=== PATIENT | male | born 2000 | race Caucasian/White ===

== ENCOUNTER 2020-02-29 05:43 | Outpatient (CLI) | payer OTHER, SELFPAY ==
--- NOTE | 2020-04-02 12:22 | WPDHOMESLEEP ---
Sleep Study - Home Unattended Date of Study: 02/29/20 Ordering Provider: Mark Buchanan MD Interpreting Physician: Arun Price MD Home Sleep Study Type: Apnea Link Air Height: 1.75 m Weight: 129.274 kg Body Mass Index: 42.0 [place]: 8 Reason for Sleep Study Poor quality sleep, snoring, difficulty falling asleep and staying asleep Sleep History Anastacio Davis Is a 19-year-old male who describes himself as a night owl. He snores. He has difficulty falling asleep due to anxiety. There is a family history of sleep apnea with his grandmother and grandfather using CPAP. He has used medication to help fall asleep and stay asleep. He was placed on an SSRI to help with anxiety. He constantly snores and is frequently loud enough that others complain about it. He constantly has trouble sleep with a cold. He does not gasp for breath at night or have breathing problems reported to him by others but he does frequently sweats excessively at night. He does not notice his heart pounding or beating irregularly at night. He occasionally falls asleep during the day but never involuntarily or while driving. He does not have loss of muscle tone with strong emotion. 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 He does not feel paralyzed when waking or falling asleep. He rarely has vivid dreamlike scenes upon awakening or falling asleep. He has never for a to go to sleep. He rarely has nightmares. He rarely remembers is doing dreams. He occasionally has racing thoughts. He frequently feels sad, depressed and anxious. Occasion has muscular tension. He rarely notices parts of his body jerking. He rarely kicks at night. He does not have crawling and aching feelings in the legs and really has leg pain at night. He does not have morning jaw pain. He does not grind his teeth during sleep. He occasionally has bothered by pain during the day but never is awakened by pain at night. He occasionally wakes up feeling stiff in the morning with sore achy muscles, rarely wakes up with pain in the neck and spine. He has headaches depression and difficulty making decisions. Normal bedtime is 2:00 a.m. taking 30 minutes to fall asleep typically waking 3 times at night for just a short while. When this happens he looks it is alarm clock. He wakes up at 9:30 a.m. in the morning. Weekend is about the same. Sometimes she stays up until midnight. He does not take naps. A short nap may be refreshing. He is drowsy in the morning for 2 hours or longer. HABITS: He never smoked. Caffeine 2 beverages a week. No alcohol or recreational drugs. [facility] Past Medical History Medical History (Updated 04/02/20 @ 12:43 by Arun Price MD) Anxiety Depression Headache, migraine, intractable has been hospitalized within the past Insomnia Seasonal allergies Surgical History Surgical History History of tonsillectomy and adenoidectomy Family History Family History Grandparent Obstructive sleep apnea a grandmother and grandfather both wear CPAP Social History Social History (Updated 04/02/20 @ 12:40 by Arun Price MD) Smoking status: Never smoker Alcohol intake: never Substance use: never Living arrangements: with family Occupation/Education: occupation Additional occupation/education comments: 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 This study was scored using CMS guidelines. the sleep duration was 7 hours 18 minutes. Sleep Architecture Not applicable for home sleep test. Respiratory Analysis he apnea-hypopnea index is 4.2. The respiratory disturbance index is elevated
[2020-04-02 12:54] VITALS: BMI 42.0
== END 2020-02-29 05:44 ==
LOC: ANHCSM 04-03 05:44
PROVIDERS: PCP Pediatrics; Visit Provider Family Medicine
DX: G47.10 Hypersomnia, unspecified (principal); R06.83 Snoring; E66.9 Obesity, unspecified; Z68.41 Body mass index [BMI] 40.0-44.9, adult
CPT/HCPCS: 95806

== ENCOUNTER 2020-10-14 09:26 | Outpatient (CLI) | payer OTHER, SELFPAY ==
--- NOTE | ~2020-10-14 | XR_ITS ---
EXAMINATION: XR knee LT 3V DATE: 10/14/2020 09:46 INDICATION: Left knee pain. TECHNIQUE: 3 views of left knee were obtained. COMPARISON: Left tibia and fibula radiographs 02/19/2014 FINDINGS: Bone alignment is normal. No fracture. Joint spaces are well maintained. There is no knee j oint effusion. IMPRESSION: 1. Normal left knee. Reviewed, dictated and finalized at location A. IMPRESSION: 1. Normal left knee.
== END 2020-10-14 09:27 | disposition home or self-care (01) ==
LOC: CHSIMG 09:28
PROVIDERS: PCP Family Medicine; Visit Provider Family Medicine
DX: M25.562 Pain in left knee (principal)
CPT/HCPCS: 73562

== ENCOUNTER 2021-01-23 15:35 | Outpatient (CLI) | payer OTHER, SELFPAY ==
[2021-01-23 16:22] LABS: SARS-CoV-2 Ag Negative (Negative)
== END 2021-01-23 15:36 | disposition home or self-care (01) ==
LOC: CHSLAB 15:38
PROVIDERS: PCP Family Medicine; Visit Provider Family Medicine
DX: J02.9 Acute pharyngitis, unspecified (principal); Z20.822 Contact with and (suspected) exposure to COVID-19
CPT/HCPCS: 87081; 87426; 87880; C9803

== ENCOUNTER 2021-02-04 19:47 | Emergency (ER) | payer OTHER, SELFPAY ==
[2021-02-04 20:09] VITALS: BP 141/78; PULSE 68; RESP 18; TEMP 36.4; O2SAT 100
--- NOTE | 2021-02-04 23:12 | ED.URI ---
HPI - URI/Sore Throat General Chief Complaint: Upper Respiratory Infection Stated Complaint: rsv/sinus symptoms Time Seen by Provider: 02/04/21 23:00 History of Present Illness HPI Narrative: Patient presents with cough congestion and sore throat. Patient ports he had a sore throat couple weeks ago saw his primary care doctor was started on antibiotics was improving however since yesterday symptoms appear to be returning and are now associated with a cough subjective fevers and sinus pressure. He reports his cousin tested positive for RSV and his family told him to come to the ER for evaluation. Patient denies any focal chest pain, shortness of breath, nausea, vomiting. Related Data Home Medications Medication Instructions Recorded Confirmed citalopram mg 02/04/21 Allergies Allergy/AdvReac Type Severity Reaction Status Date / Time divalproex sodium Allergy Intermediate Confusion Verified 02/04/21 22:18 DIPHENHYDRAMINE HCL AdvReac Unknown DISORIENTED Uncoded 02/04/21 22:18 PROCHLORPERAZINE EDISYLATE AdvReac Unknown DISORIENTED Uncoded 02/04/21 22:18 PROCHLORPERAZINE MALEATE AdvReac Unknown DISORIENTED Uncoded 02/04/21 22:18 Review of Systems Review of Systems: CONSTITUTIONAL: Denies fever, chills, or sweats. EYES: Denies visual changes, redness, or discharge. ENT: Reports congestion and sinus pressure CARDIOVASCULAR: Denies chest pain, palpitations, or edema. RESPIRATORY: Patient reports cough GASTROINTESTINAL: Denies abdominal pain, nausea, vomiting, or diarrhea. GENITOURINARY: Denies dysuria or hematuria. SKIN: Denies rash or itching. MUSCULOSKELETAL: Denies back pain, joint pain, or myalgia. NEUROLOGIC: Denies headache, numbness, dizziness, or weakness. PSYCHIATRIC: Denies anxiety or depression. 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 HEAD: Normocephalic, atraumatic. EYES: PERRLA and EOMI. ENT: Nares clear, no rhinorrhea or epistaxis. Mucous membranes moist. Mild erythema in the posterior pharynx mild tenderness to percussion on the frontal maxillary sinus NECK: Supple. No masses. No JVD CHEST: Clear to auscultation. No respiratory distress. No wheezes rales or rhonchi HEART: Regular rate and rhythm. No murmur heard. Normal peripheral pulses. ABDOMEN: Soft, nontender, nondistended, normal active bowel sounds. EXTREMITIES: Normal range of motion. No edema. SKIN: Warm, dry, no rash. NEURO: No focal deficits. Alert and oriented x3. PSYCH: Normal mood and affect. Course Vital Signs Vital signs: Vital Signs Temperature 36.4 C 02/04/21 20:09 Pulse Rate 68 02/04/21 20:09 Respiratory Rate 18 02/04/21 20:09 Blood Pressure 141/78 H 02/04/21 20:09 Pulse Oximetry 100 02/04/21 20:09 Temperature 36.4 C 02/04/21 20:09 Pulse Rate 68 02/04/21 20:09 Respiratory Rate 18 02/04/21 20:09 Blood Pressure 141/78 H 02/04/21 20:09 Pulse Oximetry 100 02/04/21 20:09 MDM - URI/Sore Throat MDM Narrative Medical decision making narrative: H&P as above, vs with mild hypertension, pt looks clinically well, exam reassuring, labs/img
== END 2021-02-04 23:35 | disposition home or self-care (01) ==
PROVIDERS: Emergency Provider Emergency Medicine; PCP Family Medicine
DX: J06.9 Acute upper respiratory infection, unspecified (principal); F41.9 Anxiety disorder, unspecified; F32.9 Major depressive disorder, single episode, unspecified; G47.00 Insomnia, unspecified; Z86.69 Personal history of other diseases of the nervous system and sense organs
CPT/HCPCS: 99281

== ENCOUNTER 2021-05-19 16:44 | Outpatient (CLI) | payer OTHER, SELFPAY ==
[2021-05-19 17:57] LABS: Influenza A QL RT-PCR Negative (Negative); Influenza B QL RT-PCR Negative (Negative); SARS-CoV-2 RNA PCR Negative (Negative)
== END 2021-05-19 16:45 | disposition home or self-care (01) ==
LOC: CHSLAB 16:48
PROVIDERS: PCP Family Medicine; Visit Provider Nurse Practitioner Family
DX: Z20.822 Contact with and (suspected) exposure to COVID-19 (principal); R50.9 Fever, unspecified; R52 Pain, unspecified
CPT/HCPCS: 87081; 87502; 87880; C9803; U0003; U0005

== ENCOUNTER 2021-09-11 12:21 | Outpatient (CLI) | payer BC, SELFPAY ==
--- NOTE | ~2021-09-11 | XR_ITS ---
EXAMINATION: XR abdomen obstructive series EXAM DATE: 09/11/2021 12:48 INDICATION: RUQ Pain x 3 days . TECHNIQUE: Frontal projection(s) of the abdomen for interpretation. There is no prior study for desi amaya. FINDINGS: There is expected amount of colonic stool and gas. No small bowel dilation, nonobstructiv e bowel gas pattern. There are no suspicious calcifications identified. There is no organomegaly suspected. The bones are unremarkable. There is no free intraperitoneal air. The lung bases are clear. IMPRESSION: Unremarkable abdomen x-ray. Reviewed, dictated and finalized at location B. IMPRESSION: Unremarkable abdomen x-ray.
--- NOTE | ~2021-09-11 | US_ITS ---
EXAMINATION: US right upper quadrant DATE: 09/11/2021 12:59 INDICATION: Right abdominal pain. TECHNIQUE: Multiple grayscale and Doppler ultrasound images of the abdomen were obtained. COMPARISON: Abdomen ultrasound 11/07/2009 FINDINGS: The visualized portions of the head and body of the pancreas are normal. There is diffuse h epatic steatosis. There is normal flow in main portal vein. The gallbladder is normal in size. No gal lstones or gallbladder wall thickening. There was no sonographic Sutherland sign. The common duct is norm al and measures 5 mm. IMPRESSION: 1. Diffuse hepatic steatosis. Reviewed, dictated and finalized at location A.
== END 2021-09-11 12:22 | disposition home or self-care (01) ==
LOC: CHSIMG 12:24
PROVIDERS: PCP Family Medicine; Visit Provider Family Medicine
DX: R10.11 Right upper quadrant pain (principal)
CPT/HCPCS: 74019; 76705

== ENCOUNTER 2021-10-05 11:05 | Outpatient (CLI) | payer BC, SELFPAY ==
[2021-10-05 11:19] LABS: Basophils Absolute Auto 0.02 K/mm3 (0.00-0.10); Basophils Percent Auto 0.3 % (0.0-1.0); Eosinophils Absolute Auto 0.18 K/mm3 (0.02-0.50); Eosinophils Percent Auto 3.1 % (1.0-6.0); Hematocrit 44.3 % (40.0-54.0); Hemoglobin 14.4 g/dL (14.0-18.0); Immature Granulocyte Absolute 0.02 K/mm3 (0.00-0.00); Immature Granulocyte Percent A 0.3 % (0.0-0.0); Lymphocytes Absolute Auto 1.73 K/mm3 (1.10-4.50); Lymphocytes Percent Auto 29.6 % (18.0-42.0); Mean Corpuscular HGB Conc 32.5 g/dL (32.0-36.0); Mean Corpuscular Hemoglobin 25.9 pg (27.0-31.0); Mean Corpuscular Volume 79.5 fL (78.0-102.0); Mean Platelet Volume 9.8 fl (8.7-11.0); Monocytes Absolute Auto 0.47 K/mm3 (0.10-0.90); Neutrophils Absolute Auto 3.4 K/mm3 (1.7-7.2); Neutrophils Percent Auto 58.7 % (50.0-70.0); Platelet Count Result 355 K/mm3 (150-420); Red Blood Count 5.57 M/mm3 (4.70-6.10); Red Cell Distribution Width 13.6 % (11.6-14.4); White Blood Count 5.8 K/mm3 (4.8-10.8)
[2021-10-05 11:25] LABS: Add Urine Microscopic? NO; Appearance Urine Clear (Clear); Bilirubin Urine Negative (Negative); Blood Urine Negative (Negative); Color Urine Yellow (Yellow); Glucose Urine UA Negative (Negative); Ketones Urine Negative (Negative); Leukocyte Esterase Ur Negative (Negative); Nitrate Urine Negative (Negative); Protein Urine Negative (Negative); Urobilinogen Urine 0.2 mg/dL (0.2-1.0)
[2021-10-05 11:46] LABS: Alanine Aminotransferase 39 U/L (16-63); Albumin Level 3.9 g/dL (3.4-5.0); Alkaline Phosphatase 80 U/L (46-116); Amylase 43 U/L (25-115); Anion Gap 6 mmol/L (8-16); Aspartate Amino Transferase 24 U/L (15-37); Bilirubin,Total 0.7 mg/dL (0.00-1.00); Blood Urea Nitrogen 12 mg/dL (7-18); Carbon Dioxide 29 mmol/L (21-32); Chloride 105 mmol/L (98-108); Estimated Glomerular Filt Rate > 60; Glucose 96 mg/dL (70-99); Osmolality Calculated 289 mOsm/kg (285-295); Sodium 140 mmol/L (136-145)
== END 2021-10-05 11:06 | disposition home or self-care (01) ==
LOC: CHSLAB 11:06
PROVIDERS: PCP Family Medicine; Visit Provider Family Medicine
DX: R11.0 Nausea (principal)
CPT/HCPCS: 36415; 80053; 81003; 82150; 85025

== ENCOUNTER 2023-02-18 03:12 | Day surgery (SDC) | payer BC, SELFPAY ==
[2023-02-03 14:39] VITALS: BMI 42.9
[2023-02-18 10:15] VITALS: BP 146/88; PULSE 64; RESP 18; TEMP 36.1; O2SAT 99
[2023-02-18] MEDS: LACTATED RINGERS 1,000 ML 150 ML IV CONT (10:33)
--- NOTE | 2023-02-18 10:33 | WPDANESEPPF ---
Anes - Initial Pre Proc Eval Procedure: Operation Date: 02/18/23 11:15 Proposed Procedures p Esophagogastroduodenoscopy EGD - Jose Verdin MD Date/Time: 02/18/23 10:33 Surgeon: Jose Verdin MD Pre Op Diagnosis: RUQ pain, nausea & vomiting, unspecified Patient Data Age: 22 Gender: M Height: 1.75 m Weight: 137 kg Last Vital Signs Temp 97 F L 02/18/23 10:15 Pulse 64 02/18/23 10:15 Resp 18 02/18/23 10:15 BP 146/88 H 02/18/23 10:15 Pulse Ox 99 02/18/23 10:15 O2 Del Method Room Air 02/18/23 10:15 Allergies Allergy/AdvReac Type Severity Reaction Status Date / Time divalproex sodium Allergy Intermediate Confusion Verified 02/18/23 10:14 diphenhydramine AdvReac Confusion Verified 02/18/23 10:14 prochlorperazine AdvReac Confusion Verified 02/18/23 10:14 Home Medications Medication Instructions Recorded Confirmed Type citalopram 40 mg tablet 40 mg PO DAILY 02/04/21 02/18/23 History nortriptyline 10 mg capsule 20 mg PO HS 02/01/23 02/18/23 History pantoprazole 40 mg tablet,delayed 40 mg PO QAM PRN Indigestion 02/01/23 02/18/23 History release Patient hx anesthesia problems: none Family hx anesthesia problems: none Results Review: All pre-operative results and documents have been reviewed as part of the pre-operative evaluation. [facility] Past Medical History Medical History (Updated 02/01/23 @ 08:50 by JESUS Dillard) Anxiety Depression Headache, migraine, intractable has been hospitalized within the past Insomnia Nausea and vomiting Right upper quadrant pain Seasonal allergies Surgical History Surgical History History of tonsillectomy and adenoidectomy Family History Family History Grandparent Obstructive sleep apnea a grandmother and grandfather both wear CPAP Social History Social History Smoking status: Never smoker Alcohol intake: current Alcohol use details: 2-4 drinks monthly Substance use: never Substance use type: does not use Living arrangements: alone Occupation/Education: occupation Additional occupation/education comments: 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 Informed Consent: The patient's anesthetic plan and its attendant risks and benefits were discussed with the patient/family/POA. Questions were solicited and answers provided to the satisfaction of the patient/family/POA.
--- NOTE | 2023-02-18 10:55 | WPDHPUPDATE1 ---
History and Physical Update Update Date/Time: 02/18/23 10:55 History and Physical has been reviewed, including an updated exam of the patient. There are NO changes in the patient's condition. Risks, benefits, and alternatives have been discussed and questions answered. Patient agrees to proceed with procedure.
[2023-02-18 11:12] VITALS: BP 124/67; PULSE 84; RESP 18; O2SAT 96
[2023-02-18 11:22] VITALS: BP 118/67; PULSE 82; RESP 18; O2SAT 98
[2023-02-18 11:32] VITALS: BP 114/65; PULSE 65; RESP 18; O2SAT 98
== END 2023-02-18 11:42 | disposition home or self-care (01) ==
PROVIDERS: PCP Family Medicine; Visit Provider Internal Medicine Gastroenterology
PROC: 0DJ08ZZ Inspection of Upper Intestinal Tract, Via Natural or Artificial Opening Endoscopic (ICD-10-PCS; CPT 43235; principal; 2023-02-18 11:15)
DX: R11.2 Nausea with vomiting, unspecified (principal); R10.11 Right upper quadrant pain; K30 Functional dyspepsia; F41.9 Anxiety disorder, unspecified; F32.A Depression, unspecified; E66.01 Morbid (severe) obesity due to excess calories; Z68.41 Body mass index [BMI] 40.0-44.9, adult
CPT/HCPCS: 43239; 88305; J2704; J7120

== ENCOUNTER 2023-09-05 13:16 | Emergency (ER) | payer BC, SELFPAY ==
[2023-09-05] VITALS (14 sets, daily range): BP systolic 141–158; BP diastolic 76–97; PULSE 64–84; RESP 12–20; TEMP 36.7; O2SAT 98–100
--- NOTE | ~2023-09-05 | CT_ITS ---
EXAMINATION: CT abdomen pelvis wo con DATE: 09/05/2023 14:19 INDICATION: Left lower quadrant abdominal pain. Dysuria. TECHNIQUE: Computed tomography (CT) of the abdomen and pelvis was performed without intravenous contr ast. Automated exposure control and iterative reconstruction technique were employed. The dose-length product was 1775.54 mGy-cm. COMPARISON: None. FINDINGS: The visualized portions of the lung bases demonstrate minimal atelectasis. No pleural effus ion. The heart size is normal. No pericardial effusion. There is mild bilateral gynecomastia. There i s diffuse hepatic steatosis. The liver, gallbladder, pancreas, spleen, adrenal glands, and right kidn ey are normal. There is mild left hydronephrosis and hydroureter. There is a 3 mm stone at left urete rovesicular junction. There are no dilated loops of bowel. There are changes of appendectomy. There a re no pathologically enlarged lymph nodes. There is no free intraperitoneal fluid. There is mild thor acic and lumbar spondylosis. There is mild chronic anterior wedging of multiple vertebral bodies. IMPRESSION: 1. 3 mm stone at left ureterovesicular junction with mild left hydronephrosis and hydroureter. 2. Diffuse hepatic steatosis. Reviewed, dictated and finalized at location A. IMPRESSION: 1. 3 mm stone at left ureterovesicular junction with mild left hydronephrosis a nd hydroureter. 2. Diffuse hepatic steatosis.
--- NOTE | 2023-09-05 13:35 | ED.MALEGU ---
HPI - Male Genitourinary General Chief complaint: Urogenital-Male Stated complaint: UTI symptoms Time Seen by Provider: 09/05/23 13:33 Source: patient and family History of Present Illness HPI Narrative: 22 years old white male came to the ED complaining of severe pain at the tip of his urethra at 6:00 a.m. few hours later started having pain at the left lower quadrant with frequent urination and nausea and diaphoresis. His mom have history of kidney stone. left lower quadrant pain radiating to left testicle. Related Data Home Medications Medication Instructions Recorded Confirmed citalopram 40 mg tablet 40 mg PO DAILY 02/04/21 02/18/23 nortriptyline 10 mg capsule 20 mg PO HS 02/01/23 02/18/23 pantoprazole 40 mg tablet,delayed 40 mg PO QAM PRN Indigestion 02/01/23 02/18/23 release Allergies Allergy/AdvReac Type Severity Reaction Status Date / Time divalproex sodium Allergy Intermediate Confusion Verified 09/05/23 13:17 diphenhydramine AdvReac Confusion Verified 09/05/23 13:17 prochlorperazine AdvReac Confusion Verified 09/05/23 13:17 Review of Systems Review of Systems: All systems reviewed & are unremarkable except as noted in HPI and below PMFSH Past Medical History Medical History Anxiety Depression Headache, migraine, intractable has been hospitalized within the past Insomnia Nausea and vomiting Right upper quadrant pain Seasonal allergies Surgical History Surgical History History of tonsillectomy and adenoidectomy Family History Family History Grandparent Obstructive sleep apnea a grandmother and grandfather both wear CPAP Social History Social History Smoking status: Never smoker Alcohol intake: current Alcohol use details: 2-4 drinks monthly Substance use: never Substance use type: does not use Living arrangements: alone Occupation/Education: occupation Additional occupation/education comments: 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 Musculoskeletal: Normal range of motion, nontender back Neurologic: Alert and oriented ?3, LOGISTICS TECHNICIAN is normal as tested, no gross motor deficit Course Reevaluation(s) Reevaluation #1: Currently patient is pain-free, feeling much better and. Date: 09/05/23 Time: 16:39 Vital Signs Vital signs: Vital Signs Temperature 36.7 C 09/05/23 13:19 Pulse Rate 84 09/05/23 13:19 Respiratory Rate 20 09/05/23 13:19 Blood Pressure 158/95 H 09/05/23 13:19 Pulse Oximetry 100 09/05/23 13:19 Oxygen Delivery Room Air 09/05/23 13:19 Temperature 36.7 C 09/05/23 13:19 Pulse Rate 74 09/05/23 13:34 Respiratory Rate 12 09/05/23 13:34 Blood Pressure 141/76 H 09/05/23 13:34 Pulse Oximetry 100 09/05/23 13:34 Oxygen Delivery Room Air 09/05/23 13:19 MDM - Male Genitourinary MDM Narrative Medical decision making narrative: Patient presents with pain at the tip of the penis left lower quadrant radiating to left testicle Differential diagnosis include kidney stone,
[2023-09-05 13:39] LABS: Glucose Point of Care 123 mg/dl (65-105)
[2023-09-05] MEDS: SODIUM CHLORIDE 0.9% IV 1,000 ML 999 ML IV CONT (13:57)
[2023-09-05] MEDS: ONDANSETRON INJ 4 MG/2 ML VIAL IV PUSH (13:57)
[2023-09-05] MEDS: HYDROmorphone HCL INJ (*CRX) 1 MG/ML SYR 0.5 MG IV PUSH (13:59)
[2023-09-05 14:11] LABS: Basophils Percent Auto 0.3 % (0.2-1.2); Eosinophils Absolute Auto 0.1 K/mm3 (0-0.3); Hematocrit 44.7 % (42.0-52.0); Hemoglobin 14.7 g/dL (14.0-18.0); Immature Granulocyte Absolute 0.04 K/mm3 (0.00-0.031); Immature Granulocyte Percent A 0.4 % (0-0.5); Lymphocytes Absolute Auto 2.27 K/mm3 (0.9-3.2); Lymphocytes Percent Auto 23.4 % (18.3-44.2); Mean Corpuscular HGB Conc 32.9 g/dl (32-36); Mean Corpuscular Hemoglobin 25.7 pg (26-34); Mean Corpuscular Volume 78.1 fl (80-100); Mean Platelet Volume 9.4 fl (7.4-10.4); Monocytes Absolute Auto 0.6 K/mm3 (0.1-0.6); Monocytes Percent Auto 6.5 % (2.6-8.5); Neutrophils Absolute Auto 6.6 K/mm3 (1.3-6.7); Neutrophils Percent Auto 68.4 % (45.5-73.1); Platelet Count Result 381 k/mm3 (150-375); Red Blood Count 5.72 M/mm3 (4.6-6.20); Red Cell Distribution Width 14.6 % (11.5-14.5); White Blood Count 9.7 K/mm3 (4.5-10.0)
[2023-09-05 14:19] LABS: Appearance Urine Clear (Clear); Bacteria Urine None Seen /hpf; Bilirubin Urine Negative (Negative); Blood Urine Negative (Negative); Color Urine Yellow (Yellow); Glucose Urine UA Negative (Negative); Ketones Urine Trace mg/dL (Negative); Leukocyte Esterase Ur Negative LEU/UL (Negative); Nitrate Urine Negative (Negative); Non Pathogenic Casts 0-2; Protein Urine Trace mg/dL (Negative); RBC Urine 0-2 /hpf (0-2); Specific Grav Ur 1.028 (1.001-1.035); Squamous Epithelial Cell Urine None Seen /hpf (Few); WBC Urine 0-5 /hpf (0-3); pH Urine 5.5 (5.0-9.0)
[2023-09-05 14:23] LABS: Add Urine Microscopic? YES
[2023-09-05 14:24] LABS: Alanine Aminotransferase 61 U/L (6-50); Albumin Level 4.6 g/dL (3.5-5.1); Alkaline Phosphatase 90 U/L (38-126); Anion Gap 6 mmol/L (4-12); Aspartate Amino Transferase 40 U/L (17-59); Bilirubin,Total 0.6 mg/dL (0.2-1.3); Blood Urea Nitrogen 13 mg/dL (9-20); Calcium 9.7 mg/dL (8.4-10.2); Carbon Dioxide 28 mmol/L (22-30); Chloride 105 mmol/L (98-107); Estimated CRCL calculation 168 ml/min; Estimated Glomerular Filt Rate > 60; Glucose 156 mg/dL (65-110); Lipase 59 U/L (23-300); Potassium 3.7 mmol/L (3.4-5.0); Sodium 139 mmol/L (137-145)
[2023-09-05] MEDS: KETOROLAC 30 MG/ML VIAL (*BKC) IV PUSH (15:07)
[2023-09-05] MEDS: TAMSULOSIN HCL 0.4 MG CAPSULE PO (16:30)
== END 2023-09-05 16:48 | disposition home or self-care (01) ==
PROVIDERS: Emergency Provider Emergency Medicine; PCP Family Medicine
DX: N13.2 Hydronephrosis with renal and ureteral calculous obstruction (principal); F41.9 Anxiety disorder, unspecified; F32.A Depression, unspecified; K76.0 Fatty (change of) liver, not elsewhere classified
CPT/HCPCS: 36415; 74176; 80053; 81001; 82948; 83690; 85025; 96361; 96374; 96375; 99284; A9270; J1170; J1885; J2405; J7030

== ENCOUNTER 2023-10-05 12:34 | Outpatient (CLI) | payer BC, SELFPAY ==
--- NOTE | ~2023-10-05 | XR_ITS ---
EXAMINATION: XR abdomen/kub 1V DATE: 10/05/2023 12:52 INDICATION: Left ureteral stone. TECHNIQUE: A supine view of the abdomen on 2 radiographs was obtained. COMPARISON: CT abdomen and pelvis 09/05/2023 FINDINGS: There are no dilated loops of bowel. There is a moderate volume of stool in the colon. IMPRESSION: 1. No visible urolithiasis. Reviewed, dictated and finalized at location A. IMPRESSION: 1. No visible urolithiasis.
== END 2023-10-05 12:35 | disposition home or self-care (01) ==
LOC: ANHIMG 12:36
PROVIDERS: PCP Family Medicine; Visit Provider Urology
DX: N20.1 Calculus of ureter (principal)
CPT/HCPCS: 74018